=== PATIENT | male | born 1990 | race Two or more races ===

== ENCOUNTER 2021-03-08 05:59 | Emergency (ER) | payer MEDICARE, MEDICAID ==
[2021-03-08 06:15] VITALS: BP 123/56; PULSE 66
--- NOTE | 2021-03-08 06:41 | EDM.PDOC ---
ED HPI GENERAL MEDICAL PROBLEM - General Chief Complaint: Gastrointestinal Problem Stated Complaint: DIARRHEA LAST 3 DAYS Time Seen by Provider: 03/08/21 06:30 Source of Information: Reports: Patient History Limitations: Reports: No Limitations - History of Present Illness INITIAL COMMENTS - FREE TEXT/NARRATIVE: 30-year-old male presents after having watery diarrhea for 3 mornings in a row. 3 days ago he had some back and shoulder discomfort, generalized aches but that resolved, his only complaint is watery diarrhea that he has when he wakes up in the morning and then a second time each day at around 2:00. He has no fevers or chills, no blood in the stool, no nausea or vomiting, no abdominal cramps or pain. He feels fine otherwise. He did a home Covid test and it was negative. Onset: Sudden Duration: Day(s): (Started 3 days ago) Associated Symptoms: Reports: Other (Some generalized body aches 3 days ago but no associated symptoms currently) - Related Data Allergies Allergy/AdvReac Type Severity Reaction Status Date / Time No Known Allergies Allergy Verified 03/08/21 06:13 Home Meds: Home Meds clonazePAM [Clonazepam] 1 mg PO BEDTIME 03/08/21 [History] ziprasidone HCL [Geodon] 80 mg PO BEDTIME 03/08/21 [History] Past Medical History Musculoskeletal History: Reports: Other (See Below) Other Musculoskeletal History: carpal tunnel Psychiatric History: Reports: Bipolar, Psych Hospitalization(s), Schizophrenia - Infectious Disease History Infectious Disease History: Reports: Chicken Pox, Novel Coronavirus Other Infectious Disease History: covid dec 2020 Social & Family History - Tobacco Use Tobacco Use Status *Q: Never Tobacco User - Caffeine Use Caffeine Use: Reports: Coffee - Recreational Drug Use Recreational Drug Use: No ED ROS GENERAL - Review of Systems Review Of Systems: See Below Constitutional: Denies: Fever, Chills, Malaise, Decreased Appetite HEENT: Reports: No Symptoms Respiratory: Reports: No Symptoms Cardiovascular: Reports: No Symptoms GI/Abdominal: Reports: Diarrhea, Stool Incontinence. Denies: Abdominal Pain, Constipation, Hematemesis : Reports: No Symptoms Musculoskeletal: Reports: Shoulder Pain, Back Pain Skin: Reports: No Symptoms Neurological: Denies: Headache Psychiatric: Reports: Anxiety ED EXAM, GI/ABD - Physical Exam Exam: See Below Exam Limited By: No Limitations General Appearance: Alert, No Apparent Distress Eyes: Bilateral: Normal Appearance Head: Atraumatic Respiratory/Chest: Lungs Clear Cardiovascular: Regular Rate, Rhythm GI/Abdominal Exam: Normal Bowel Sounds, Soft, Non-Tender Neurological: Alert, Oriented Psychiatric: Normal Affect, Normal Mood Skin Exam: Warm, Dry Course - Vital Signs Last Recorded V/S: Last Vital Signs Temp 97.9 F 03/08/21 06:14 Pulse 66 03/08/21 06:14 Resp 16 03/08/21 06:14 BP 123/56 L 03/08/21 06:14 Pulse Ox 97 03/08/21 06:14 - Re-Assessments/Exams Free Text/Narrative Re-Assessment/Exam: 03/08/21 06:39 Explained to the patient that it is likely viral and he can control the diarrhea with Imodium for the next day or 2 and recheck if it persists. He can also recheck if it is worse such as bloody diarrhea, feverish or he develops abdominal pain. I also offered to check a stool sample if he was willing to wait and provide a sample that he did not think he would have diarrhea again until 2:00 in the afternoon. No further work-up was done at this time, he can return if worsening. Departure - Departure Time of Disposition: 06:43 Disposition: Home, Self-Care 01 Clinical Impression: Secretory diarrhea - Discharge Information Instructions: Diarrhea, Adult Referrals: PCP,None [Primary Care Provider] - Forms: ED Department Discharge Care Plan Goals: You can buy Imodium [id number], take as directed for diarrhea control. Consider rechecking in 2 or 3 days if not improving satisfactorily, or return anytime if worsening such as abdominal pain, fever, bloody diarrhea or other concerns. Sepsis Event Note (ED) - Evaluation Sepsis Screening Result: No Definite Risk - Focused Exam Vital Signs: Vital Signs Temp Pulse Resp BP Pulse Ox 03/08/21 06:14 97.9 F 66 16 123/56 L 97
== END 2021-03-08 06:48 | disposition home or self-care (01) ==
LOC: JP.ED 05:59
DX: R19.7 Diarrhea, unspecified (principal); Z86.16 Personal history of COVID-19
CPT/HCPCS: 99283

== ENCOUNTER 2021-10-29 12:47 | Emergency (ER) | payer MEDICARE, MEDICAID | END 2021-10-29 13:40 | disposition left against medical advice (07) | LOC: JP.ED 12:47 | DX: Z53.21 Procedure and treatment not carried out due to patient leaving prior to being seen by health care provider (principal) ==

== ENCOUNTER 2021-10-30 07:17 | Emergency (ER) | payer MEDICARE, MEDICAID ==
[2021-10-30 07:29] VITALS: BP 118/69; PULSE 51
[2021-10-30] MEDS ORDERED: Ketorolac 30 MG/ML SDV IM ONE (07:45)
== END 2021-10-30 08:42 | disposition home or self-care (01) ==
LOC: JP.ED 07:17
DX: M25.512 Pain in left shoulder (principal); Z79.899 Other long term (current) drug therapy; Z86.16 Personal history of COVID-19
CPT/HCPCS: 73030; 96372; 99283; J1885

== ENCOUNTER 2022-10-31 23:25 | Emergency (ER) | payer MEDICAID, MEDICARE ==
[2022-11-01 02:47] LABS: ANION GAP 9.1 mmol/L (5.0-14.0); CALCIUM 8.5 mg/dL (8.5-10.1); CREATININE 1.2 mg/dL (0.8-1.3); EST CRCL DRUG DOSING (CG) 87.56 mL/min; POTASSIUM,K 3.7 mmol/L (3.6-5.2)
[2022-11-01 04:47] LABS: AMPHETAMINES SCREEN, URINE NEGATIVE (NEGATIVE); BARBITURATE SCREEN,URINE NEGATIVE (NEGATIVE); BENZODIAZEPINES SCREEN,URINE NEGATIVE (NEGATIVE); METHADONE SCREEN, URINE NEGATIVE (NEGATIVE); METHAMPHETAMINES SCREEN, URINE NEGATIVE (NEGATIVE); OXYCODONE SCREEN,URINE NEGATIVE (NEGATIVE); PROPOXYPHENE SCREEN,URINE NEGATIVE (NEGATIVE); THC SCREEN,URINE 50 NG/ML NEGATIVE (NEGATIVE)
[2022-11-01 08:33] LABS: BASOPHILS ABSOLUTE AUTO 0.07 K/uL (0.00-0.10); BASOPHILS PERCENT AUTO 0.9 % (0.1-1.3); EOSINOPHILS PERCENT AUTO 3.8 % (0.0-5.4); HEMATOCRIT 40.9 % (38.4-49.7); HEMOGLOBIN 14.1 g/dL (12.9-16.9); IMMATURE GRAN ABSOLUTE AUTO 0.01 K/uL (0.00-0.23); IMMATURE GRAN PERCENT AUTO 0.1 % (0.0-0.7); LYMPHOCYTES ABSOLUTE AUTO 3.49 K/uL (0.8-3.3); LYMPHOCYTES PERCENT AUTO 44.2 % (11.4-47.7); MEAN CORPUSCULAR HEMOGLOBIN 30.4 pg (31.6-35.5); MEAN CORPUSCULAR HGB CONC 34.5 g/dL (31.6-35.5); MEAN CORPUSCULAR VOLUME 88.1 fL (81.4-99.0); MONOCYTES ABSOLUTE AUTO 0.73 K/uL (0.20-0.90); MONOCYTES PERCENT AUTO 9.3 % (3.3-12.6); NEUTROPHILS ABSOLUTE AUTO 3.29 K/uL (1.0-7.6); NEUTROPHILS PERCENT AUTO 41.7 % (40.0-78.1); PLATELET COUNT,PLT 269 K/uL (130-375); RED BLOOD CELL COUNT 4.64 M/uL (4.14-5.76); WHITE BLOOD CELL COUNT,WBC 7.9 K/uL (3.2-11.0)
[2022-11-01] MEDS: Nicotine Polacrilex 2 MG Gum CHEW PRN ×2 (08:54→11:31)
[2022-11-01 11:32] VITALS: BP 95/62; PULSE 61
== END 2022-11-01 12:30 ==
LOC: JP.ED 23:25
DX: T42.6X2A Poisoning by other antiepileptic and sedative-hypnotic drugs, intentional self-harm, initial encounter (principal); T42.4X2A Poisoning by benzodiazepines, intentional self-harm, initial encounter; F32.A Depression, unspecified; Z79.899 Other long term (current) drug therapy; Z86.16 Personal history of COVID-19
CPT/HCPCS: 36415; 80048; 80143; 80179; 80305; 85025; 93005; 99285; A9270